=== PATIENT | female | born 1965 | race Caucasian/White ===

== ENCOUNTER → 2016-12-15 | Emergency (ER) | payer BC ==
[~2016-12-15] VITALS: Ht 166.4 cm; Wt 141.0 kg
[~2016-12-15] MED LIST: ALPR0.5T8 PO; HYDR-4246 PO; HYDR1TAB73 PO; HYDROCODONE/APAP 5/325 (PrePack) SENT HOME ONE; HYDROMORPHONE 2mg/ml INJECTION IV ONE; IOHEXOL 300 MG/ML 100ml INJECTION ONE; KETOROLAC 30mg/ml INJECTION IV ONE; LANS15CA5 PO; LEVO100T83 PO; LEVO500T63 PO; LEVOFLOXACIN 500 MG TABLET PO ONE; METR-116 PO; METRONIDAZOLE 500 MG TABLET PO ONE; NORMAL SALINE 1,000 ML IV ONE; NORMAL SALINE 100 ML ONE; ONDA4TAB7 PO; ONDANSETRON 4mg/2ml INJECTION IV ONE; ONDANSETRON ODT 4mg #3 (PrePack) SENT HOME ONE; POTA20TA10 PO; SALINE FLUSH 10ml SYRINGE ONE; SPIR25TA4 PO; SUMA100T PO; TORS100T2 PO
[2016-12-15 16:03] VITALS: Ht 166.4 cm; Wt 141.0 kg
--- OUTSIDE RECORDS SUMMARY | 2016-12-15 16:03 | XMS REPORT | Referral Summary ---
Author Author [facility], [facility] Care Organization [facility] Address Unknown Phone Unavailable Care Team Providers Care Licensed Midwife Name Role Phone Tatianna Restrepo Primary Care Physician [phone] Encounter VC Date(s): 03/05/15 - 03/05/15 [facility], [address] [place] [id number] Discharge Diagnosis: HTN (hypertension) Discharge Diagnosis: Acute URI Discharge Diagnosis: Acute UTI Discharge Diagnosis: Glucosuria Discharge Disposition: 01-Home or Self Care Attending Physician: Belinda Edmond APRN Admitting Physician: Belinda Edmond APRN Vital Signs Most recent to 1 oldest [Reference Range]: Temperature Tympanic 38.6 degC [36.6-38.1 degC] *HI* (03/05/15 5:10 PM) Peripheral Pulse 120 bpm Rate [60-100 bpm] *HI* (03/05/15 5:10 PM) Blood Pressure 150/98 mmHg [90-140/60-90 mmHg] *HI* (03/05/15 5:10 PM) SpO2 97 % (03/05/15 5:10 PM) Problem List Condition Effective Dates Status Health Status Informant Morbid Active patient obesity(Confirmed) Allergies, Adverse Reactions, Alerts Substance Reaction Severity Status erythromycin Active Medications Imitrex Once, 0 Refill(s) Start Date: 09/27/14 Status: Ordered levothyroxine Daily, 0 Refill(s) Start Date: 09/27/14 Status: Ordered oxybutynin 5 mg oral tablet 5 mg 1 tabs, Oral, TID, as needed for urinary discomfort, # 30 tabs, 0 Refill(s) , Pharmacy: [id number], 1 tabs Oral TID,PRN:as needed for urinary discomfort Start Date: 03/05/15 Status: Ordered spironolactone Oral, 0 Refill(s) Start Date: 09/27/14 Status: Ordered torsemide 100 mg oral tablet 1 tabs, Oral, Daily, # 30 tabs, 0 Refill(s) Start Date: 09/27/14 Status: Ordered Xanax 0.5 mg oral tablet 1 tabs, Oral, TID, as needed for anxiety, 0 Refill(s) Start Date: 09/27/14 Status: Ordered Results No data available for this section Immunizations No data available for this section Procedures Procedure Date Related Diagnosis Body Site section Subtotal thyroidectomy DANIEL BSO - Total abdominal hysterectomy and bilateral salpingo-oophorectomy Social History Social History Type Response Smoking Status Never smoker Assessment and Plan Extracted from: Title: Office Visit Note Author: Belinda Edmond DATA VIRTUALIZATION CONSULTANT Date: 03/05/15 Assessment/Plan 1.Acute UTI Urinalysis obtained and reviewed. Positive for nitrates. I also noted to have protein and ketones, glucose. Urine bilirubin elevated. We'll culture urine. Cipro 250 mg one by mouth twice a day 10 days. Oxybutynin 5 mg by mouth 3 times a day when necessary for bladder spasms. May continue pyrene 200 mg 3 times a day as needed for bladder spasms. Tylenol/ibuprofen for discomfort. Recommend she follow-up withDr. Keelyyenowoin the next week to manage chronic medical problems and if symptoms fail to improve. Ordered: Office Visit Level 4 Est 31211 2.Glucosuria Ordered: Office Visit Level 4 Est 74475 3.HTN (hypertension) Ordered: Office Visit Level 4 Est 60748 4.Acute URI [id number] Mucinex DM may be helpful for the cough. Ordered: Office Visit Level 4 Est 91979 Orders: ciprofloxacin, 250 mg 1 tabs, Oral, q12hr, X 10 days, # 20 tabs, 0 Refill(s), Pharmacy: [id number], 1 tabs Oral q12hr,x10 days oxybutynin, 5 mg 1 tabs, Oral, TID, as needed for urinary discomfort, # 30 tabs, 0 Refill(s), Pharmacy: [id number], 1 tabs Oral TID,PRN:as needed for urinary discomfort
--- OUTSIDE RECORDS SUMMARY | 2016-12-15 16:03 | XMS REPORT | Continuity of Care Document ---
Author Author [facility] Address Unknown Phone Unavailable Allergies Medications Problems Procedures Results Encounters ACCT No. Visit Date/Time Discharge Status Pt. Type Provider Facility Loc./Unit Complaint [id number] 07/29/2013 22:56:00 2012 00:17:00 DIS Emergency
--- OUTSIDE RECORDS SUMMARY | 2016-12-15 16:03 | XMS REPORT | Referral Summary ---
Author Author [facility] Organization [facility] Address Unknown Phone Unavailable Care Team Providers Care Angle Bender Name Role Phone Tatianna Restrepo Primary Care Physician [phone] Encounter VC Date(s): 04/02/16 - 04/02/16 [facility], Surgery [address] [place] [address] [place] [id number] Discharge Diagnosis: History of diverticulitis Discharge Disposition: 01-Home or Self Care Attending Physician: Pascual Devi MD Admitting Physician: Pascual Devi MD Referring Physician: Griffin Restrepo MD Vital Signs Most recent to 1 oldest [Reference Range]: Temperature Tympanic 36 degC [36.6-38.1 degC] *LOW* (04/02/16 9:54 AM) Peripheral Pulse 76 bpm Rate [60-100 bpm] (04/02/16 9:54 AM) Blood Pressure 128/82 mmHg [90-140/60-90 mmHg] (04/02/16 9:54 AM) Problem List Condition Effective Dates Status Health Status Informant IBS (irritable bowel Active syndrome)(Confirmed) HTN Active (hypertension)(Confi rmed) Hypothyroidism(Confi Active rmed) Migraines(Confirmed) Active Morbid Active patient obesity(Confirmed) Peptic Active ulcer(Confirmed) Allergies, Adverse Reactions, Alerts Substance Reaction Severity Status erythromycin Active Medications Imitrex Once, 0 Refill(s) Start Date: 09/27/14 Status: Ordered levothyroxine Daily, 0 Refill(s) Start Date: 09/27/14 Status: Ordered Alkol 5 mg-325 mg oral tablet 1 tabs, Oral, BID, Pain Severe (7-10), 0 Refill(s) Start Date: 04/02/16 Status: Ordered spironolactone Oral, 0 Refill(s) Start [...] Procedures Procedure Date Related Diagnosis Body Site Subtotal thyroidectomy 2000 Laparoscopic cholecystectomy 1998 DANIEL BSO - Total abdominal hysterectomy and 1998 bilateral salpingo-oophorectomy section1 1988 25163, 1987, 1988 Social History Social History Type Response Smoking Status Never smoker Assessment and Plan Extracted from: Title: Ambulatory Patient Education Author: Pascual Devi MD Date: Gastroenterology Gastrointestinal Problems During Exercise Gastrointestinal problems are problems with the stomach and intestines. It is common for athletes to experience gastrointestinal problems during exercise. This is especially true for distance runners and triathletes. Symptoms include: Heartburn. Nausea. Vomiting. Bloating. Flatulence. Cramping. Urge to go the bathroom. Rectal bleeding. Diarrhea. Abdominal pain. HOW CAN I TREAT MY SYMPTOMS? Treatment depends on your symptoms. Many symptoms may be reduced or prevented by : Limiting fiber intake before exercise. Eating a diet that is high in carbohydrates and low in protein and fat. Drinking fluids often while exercising. If you were prescribed medicines to improve your symptoms, taking them only as directed by your health care provider. Avoiding: Solid foods at least three hours before exercise. Eating a large meal before exercise. Foods and drinks with fat and protein during endurance exercise. Rectal Bleeding It is very important see your health care provider when you have rectal bleeding so that he or she can make sure the bleeding is not caused by something other than exercise. To lower the chance of rectal bleeding caused by exercise: Drink enough fluid to keep your urine clear or pale yellow. Wear good running shoes. Have the hemoglobin and iron levels in your body checked regularly. If these levels are not within the normal range, you may need to take iron supplements. Take medicines only as directed by your health care provider. Diarrhea To lower the chance of diarrhea, try reducing your intake of fiber a day and a half before a competition. If you still get diarrhea, talk to your health care provider. He or she may recommend an antidiarrheal medicine. Abdominal Pain To lower the chance of abdominal pain, try to avoid eating a large meal before you exercise. WHEN SHOULD I SEEK MEDICAL CARE? If your symptoms make it difficult for you to exercise. If you have symptoms every day. If you have unexplained weight loss. If you have rectal bleeding. If you have severe abdominal pain. If you have night sweats. If you have a fever. This information is not intended to replace advice given to you by your health care provider. Make sure you discuss any questions you have with your health care provider. Document Released: 04/28/2002 Document Revised: 08/24/2015 Document Reviewed: [facility] Patient Information 2016 [employer]. No follow up information was provided. Extracted from: Title: Office Visit Note Author: Pascual Devi MD Date: 04/02/16 Assessment/Plan 1.History of diverticulitis Ordered: Office Visit Level 4 Est 85382 Plan: Colonoscopy I did review the patient's chart including and upconsultation note performed by denia June 29, 2015. As stated above at that time she had a CT scan that revealed evidence for acute diverticulitis in conjunction with a smallamount offree air consistent with asmall microperforation. Additionallyreviewed CT scan from September 12, 2015that also revealed evidence for acute proximal sigmoid diverticulitiswith a couple of areas of possiblemicroperforation. I informed the patient at this point time would recommend that she undergo a colonoscopy for further evaluationI result of her history forrectal bleedingas well as secondary to her history for recurrent diverticulitis. Risk of endoscopy was discussed with the patient. Risks include but are not inclusive of bleeding and/or perforation requiring surgery. Patient understood and was scheduled. Patient was alsoinformed that if she continues to have ongoingbouts ofthat recurrentdiverticulitis that ultimately she may require surgical intervention/robotic-assisted laparoscopic sigmoid resection.
--- OUTSIDE RECORDS SUMMARY | 2016-12-15 16:03 | XMS REPORT | Referral Summary ---
Author Organization Unknown Address Unknown Phone Unavailable Care Team Providers Care Special Tester Name Role Phone Tatianna Restrepo Primary Care Physician [phone] Encounter VC Date(s): 09/27/14 - 09/27/14 [facility], [address] [place], [place] [address] Discharge Diagnosis: Abscess, scalp Discharge Disposition: Home or Self Care Attending Physician: Vincent Angeles JR, MD, FAAFP Admitting Physician: Vincent Angeles JR, MD, FAAFP Referring Physician: Griffin Restrepo MD Vital Signs Most recent to 1 oldest [Reference Range]: Temperature Tympanic 38.1 degC [36.6-38.1 degC] (09/27/14 7:37 PM) Peripheral Pulse 102 bpm Rate [60-100 bpm] *HI* (09/27/14 7:37 PM) Blood Pressure 142/88 mmHg [90-140/60-90 mmHg] *HI* (09/27/14 7:37 PM) Most recent to 1 oldest [Reference Range]: SpO2 96 % (09/27/14 7:37 PM) Problem List Condition Effective Dates Status Health Status Informant Morbid Active patient obesity(Confirmed) Allergies, Adverse Reactions, Alerts Substance Reaction Severity Status erythromycin Active Medications Augmentin 875 mg-125 mg oral tablet 1 tabs, Oral, q12hr, X 14 days, # 28 tabs, 0 Refill(s), Pharmacy: [facility] [id number] Start Date: 09/27/14 Stop Date: 10/11/14 Status: Ordered Imitrex Once, 0 Refill(s) Start Date: 09/27/14 Status: Ordered levothyroxine Daily, 0 Refill(s) Start Date: 09/27/14 Status: Ordered [place] 5 mg-325 mg oral tablet 1 tabs, Oral, q6hr, as needed for pain, # 12 tabs, 0 Refill(s) Start Date: 09/27/14 Stop Date: 10/06/14 Status: Ordered spironolactone Oral, 0 Refill(s) Start [...] Procedures Procedure Date Related Diagnosis Body Site Incision and drainage of abscess (eg, 09/27/14 carbuncle, suppurative hidradenitis, cutaneous or subcutaneous abscess, cyst, furuncle, or paronychia); complicated or multiple section Subtotal thyroidectomy DANIEL BSO - Total abdominal hysterectomy and bilateral salpingo-oophorectomy Social History Social History Type Response Smoking Status Never smoker Assessment and Plan Extracted from: Title: Office Visit Note - scalp Author: iVncent Angeles JR, MD, FAAFP Date : 09/27/14 sebaceous cyst I&D Assessment/Plan Abscess, scalp Patient counseled regarding diagnosis, natural history, pathophysiology, typical treatment, expected results. start Augmentin 875 po bid x14 days, Rx sent PROCEDURE: I&D of Abscessed sebaceous cyst - informed consent was obtained for incision and drainage of abscess as described above, including benefits, risks, and treatment alternatives including doing nothing and patient did want to proceed. Area was prepped in usual fashion. Local anaesthesia was obtained with 5cc 1% Lidocaine with Epi and was adequate to testing. Abscess entered with scalpel as a single stab incision and was unable to express any material. Incision extended 1.5 cm and 15cc purulence cheesy material obtained with foul odor. culture obtained on red tip swab.Additional purulence was manually expressed. 4 inches of 1/8 inch Iodophore gauze placed in abscess cavity to keep it open and allow continued drainage. Oozing was moderate but slowed with direct pressure. The area was re-cleansed and around the head mild pressure bandage applied with GISSELLE wrap. Pt may change the 4x4 as needed. Rocephin 1 gm IM given by the nurse, pt observed afterwards for stability. Rx norco 5/325 po q4 hrs prn, #20 sent to pharmacy. contact PCP office in am; my nurse will coordinate repacking either with us or Dr. Restrepo. will need packing daily until healed. swab sent to lab for C&S Ordered: amoxicillin-clavulanate, 1 tabs, Oral, q12hr, X 14 days, # 28 tabs, 0 Refill(s) , Pharmacy: [id number] cefTRIAXone, 1 g, IntraMuscular, Once, First Dose: 09/27/14 21:00:00 IP LITIGATION ASSOCIATE, Stop Date: 09/27/14 21:00:00 IP LITIGATION ASSOCIATE cefTRIAXone, 1 g=, IntraMuscular, Once, First Dose: 09/27/14 21:00:00 IP LITIGATION ASSOCIATE, Stop Date: 09/27/14 21:00:00 IP LITIGATION ASSOCIATE HYDROcodone-acetaminophen, 1 tabs, Oral, q6hr, as needed for pain, # 12 tabs, 0 Refill(s) Drain Skin Abscess, Complex/Multiple 69261 Office Visit Level 3 New 69507
--- OUTSIDE RECORDS SUMMARY | 2016-12-15 16:03 | XMS REPORT | Continuity of Care Document ---
Author Author [facility] Organization [facility] Address Unknown Phone Unavailable Support Name Relationship Address Phone PABLITO NEGRETE MD Caregiver [address] [place] [address] Unavailable SAMUEL ALANIZ FACS, MD Caregiver [address] [place] [address] [place] [address] Unavailable ROMMEL KOHLI Next Of Kin [address] [place], [place] [address] C Insurance Providers Guarantor Michaela Kohli Address [address] [place] [address] CP Email [email or web address] Payer [facility] Policy Number [id number] Subscriber's Name Michaela Kohli Relationship 18 Self Group Number [id number] Advance Directives Directive Response Recorded Date/Time Ordered Resuscitation Status Full Code 04/17/16 3:41pm Resuscitation Documents on File No 04/18/16 7:44am DPOA for Healthcare Only No 04/18/16 7:44am Living Will No 04/18/16 7:44am Problems Active Problems Medical Problem Onset Date Status Adrenal abnormality Unknown Acute Adrenal tumor Unknown Anxiety Unknown Acute Bowel perforation Unknown Acute Depression Unknown Acute Diverticulitis of sigmoid colon Unknown Acute Hypertension Unknown Acute Hypokalemia Unknown Acute Irritable bowel Unknown Acute Migraine headache Unknown Acute Obesity, morbid, BMI 50 or higher Unknown Acute Pyelonephritis Unknown Acute Medications Current Home Medications Medication Dose Units Route Directions Days Qty Instructions Start Date Alprazolam 0.5 Mg Tablet 0.5 Mg Oral Twice A Day as needed for Anxiety 09/12/15 Hydrocodone Bit/Acetaminophen (Lortab 5) 1 Tab Tablet 1 Tab Oral As Needed 02/02/13 Lansoprazole (Prevacid) 15 Mg Capsule. 2 Cap Oral Daily 60 Capsule 09/19/15 Levothyroxine Sodium (Synthroid) 100 Mcg Tablet 100 Mcg Oral Before Breakfast Take 1 tablet by mouth daily on an empty stomach. 02/02/13 Ondansetron (Zofran Odt) 4 Mg Tab.rapdis 4 Mg Oral Q6h/0300,0900,1500,2100 as needed for Nausea Oral disintegrating tablet 09/12/15 Potassium Chloride (Klor-Con M20) 20 Meq Tablet 40 Meq Oral Give With Supper 30 Tablet 09/19/15 Spironolactone 25 Mg Tablet 25 Mg Oral Twice A Day 09/12/15 Sumatriptan (Imitrex) 100 Mg Tablet Oral As Needed as needed for Headache 02/02/13 Torsemide (Demadex) 100 Mg Tablet 100 Mg Oral Daily 02/02/13 Past Home Medications Medication Directions Ordered Status Potassium 99 Mg Tablet, 220 Mg Oral Daily 02/02/13 Discontinued Potassium Chloride 10 Meq Tab.er.prt, 1.5-2 Tab Oral Daily 09/12/15 Discontinued Torsemide 100 Mg Tablet, 1 Tab Oral Daily 07/01/15 Discontinued Social History Social History Problem Response Recorded Date/Time Onset Date Status Chewing Tobacco Status No 04/18/2016 7:39am Not Applicable Not Applicable Hx Substance Use No 04/18/2016 7:39am Not Applicable Not Applicable Hx Alcohol Use Y OCCAS 04/18/2016 7:39am Not Applicable Not Applicable Has the pt used tobacco in the last 12 months No 04/18/2016 7:39am Not Applicable Not Applicable Tobacco Usage none 06/29/2015 7:47pm Not Applicable Not Applicable Query Response Start Date Stop Date Smoking Status Never smoker Hospital Discharge Instructions No hospital discharge instructions. Plan of Care Discharge Date 04/18/16 10:20am Prescriptions See Medication Section Functional Status Query Response Date Recorded Ability to complete ADL's impeded by No change April 18, 2016 7:44am Allergies, Adverse Reactions, Alerts Allergen Type Severity Reaction Status Last Updated Latex Allergy Severe SWELLING,ITCHING Active 04/17/16 Erythromycin base Allergy Unknown Active 09/12/15 adhesive tape Allergy Unknown Active 09/12/15 Latex Allergy Severe SWELLING,ITCHING Active 04/17/16 PAPER TAPE Allergy Unknown Active 09/12/15 Immunizations Query Response on File Recorded Date/Time Hx Influenza Vaccination No 04/18/16 7:39am Hx Pneumococcal Vaccination No 04/18/16 7:39am Hx Influenza Vaccination No 04/18/16 7:39am Vital Signs Acute Vital Signs Vital Response Date/Time Temperature (Fahrenheit) 97.2 deg F (96.8 - 99.1) 04/18/2016 9:55am Temperature (Calculated Celsius) 36.80231 degrees C (36.0 - 37.3) 04/18/2016 9:55am Temperature Source Temporal 04/18/2016 9:55am Pulse Rate (adult) 76 bpm (60 - 100) 04/18/2016 10:15am Respiratory Rate 18 breaths/min (10 - 20) 04/18/2016 10:15am O2 Sat by Pulse Oximetry 95 % (90 - 100) 04/18/2016 10:15am Oxygen Delivery Method Room Air 04/18/2016 10:15am Blood Pressure 117/74 mm Hg 04/18/2016 10:15am Blood Pressure Source Automatic Cuff 04/18/2016 10:15am Height (Feet) 5 feet 04/18/2016 7:07am Height (Inches) 5.00 inches 04/18/2016 7:07am Weight (Kilograms) 138.000 kg 04/18/2016 7:07am Body Mass Index (BMI) 50.6 04/18/2016 7:07am Results No known relevant diagnostic tests, laboratory data and/or discharge summary. Procedures Procedure Status Date Provider(s) ULTRASOUND BREAST LIMITED Completed 02/26/16 COMPUTER DX MAMMOGRAM ADD-ON Completed 02/26/16 BREAST TOMOSYNTHESIS BI Completed 02/26/16 [id number]"DIAGNOSTIC MAMMOGRAPHY, PRODUCING DIRECT DIGITAL IMAG Completed Colonoscopy Completed 04/18/16 SAMUEL ALANIZ MD, FACS, ROCIOS Encounters Encounter Location Arrival/Admit Date Discharge/Depart Date Attending Provider Departed Surgical Day Care [facility] 04/18/16 6:58am 04/18/16 10 :20am SAMUEL ALANIZ FACS, MD Registered Clinic [facility] 02/26/16 2:23pm PABLITO NEGRETE MD
--- OUTSIDE RECORDS SUMMARY | 2016-12-15 16:28 | XMS REPORT | Continuity of Care Document ---
Author Author [facility] Address Unknown Phone Unavailable Allergies Medications Problems Procedures Results Encounters ACCT No. Visit Date/Time Discharge Status Pt. Type Provider Facility Loc./Unit Complaint [id number] 07/29/2013 22:56:00 2012 00:17:00 DIS Emergency
--- NOTE | 2016-12-15 16:29 | ERPDOC ---
Departure Disposition Decision Date: December 15, 2016 Disposition Decision Time: 19:30 (BRICE RIVERA APRN) Disposition: 01 DISCHARGED HOME, SELF-CARE Impression Impression (BRICE RIVERA APRN) Impression: Primary Impression: Sigmoid diverticulitis Severity: Moderate (BRICE RIVERA APRN) Condition: Improved Seen By: Mid-level only (BRICE RIVERA APRN) Referrals: PABLITO RESTREPO MD (Family) Patient Instructions: Diverticulitis (ED), Low Fiber Diet (ED) Problems/Meds/Labs Reviewed?: Yes Medications reviewed and manag: Yes (BRICE RIVERA APRN) Additional Instructions: Your CT scan shows a have diverticulitis in your sigmoid colon. Take Levaquin 500 mg daily for 10 days. Take metronidazole 500 mg 3 times daily for 10 days You may take [place] 5/325 one to 2 tabs every 4-6 hours as needed for pain. This medication may cause drowsiness so avoid driving, operating heavy machinery or drinking alcohol while taking. This medication does cause constipation so you may need to take a stool softener while taking. You may take Zofran 4 mg ODT, dissolve one tab on tongue every 4-6 hours as needed for nausea and vomiting. Eat a low fiber diet (see discharge packet). Follow with Dr. Restrepo as scheduled in office on Thursday for reevaluation. Follow treatment plan. Follow up care ordered?: Yes Mental Status: Alert, Oriented (BRICE RIVERA APRN) Scripts Levofloxacin (Levaquin) 500 Mg Tablet 1 TAB-CAP PO DAILY for 10 Days Prov: BRICE RIVERA APRN 12/15/16 Metronidazole (Metronidazole) 500 Mg Tablet 500 MG PO TID for 10 Days, #30 TAB Prov: BRICE RIVERA APRN 12/15/16 Ondansetron (Zofran Odt) 4 Mg Tab.rapdis 4 MG PO Q4-6HPRN for NAUSEA &/OR VOMITING, #20 TAB Oral disintegrating tablet Prov: BRICE RIVERA APRN 12/15/16 Hydrocodone/Acetaminophen ([place] 5-325 Tablet) 5-325 Tablet 1-2 TAB PO Q4-6HPRN for PAIN, #20 TAB Prov: BRICE RIVERA APRN 12/15/16 HPI - Abdominal Pain General Chief Complaint: Abdominal Pain Stated Complaint: FEVER,LOWER ABD PAIN Time Seen by Provider: 16:04 Source: patient (BRICE RIVERA APRN) Time Seen by Provider: 16:04 (SUJEY ANGLIN DO) HPI - Abdominal Pain Initial Comments 51 YO F presents to ED with report of bilateral lower abdominal pain that started last night. Patient says that she thought it might be from exercising last night (just started working out), however today pain increased and she had a fever of 100. Patient has a hx. of diverticulitis and says this feels similar to previous episodes. Admits nausea. Denies vomiting, diarrhea, dysuria. Pain Scale: Now: 5/10 Quality: aching Location: RLQ, LLQ Radiation: no radiation Associated Symptoms: fever/chills, nausea/vomiting, DENIES: back pain, chest pain, diaphoresis, fatigue, headache, heartburn, rash, shortness of breath, swelling/mass in abdomen, syncope, weakness (BRICE RIVERA APRN) Allergies: Coded Allergies: Latex, Natural Rubber (Verified Allergy, Severe, SWELLING,ITCHING, 12/15/16) latex (Verified Allergy, Severe, SWELLING,ITCHING, 12/15/16) adhesive tape (Verified Allergy, Unknown, 12/15/16) erythromycin base (Verified Allergy, Unknown, 12/15/16) Uncoded Allergies: PAPER TAPE (Allergy, Unknown, 09/12/15) Past History Patient Surgical History DANIEL-BSO Cholecystectomy with DANIEL-BSO Hemithyroidectomy 2007 Adrenalectomy (BRICE RIVERA APRN) Past Medical History Metabolic: hypertension, hypothyroidism Cardiac: DENIES: angina Respiratory: DENIES: asthma GI: other (diverticulitis) Female: DENIES: renal insufficiency Neurological: DENIES: seizures Musculoskeletal: DENIES: rheumatoid arthritis Psychological: anxiety, depression (BRICE RIVERA APRN) Surgical History General: gallbladder, tonsils Reproductive/: hysterectomy (BRICE RIVERA APRN) Family History Family PMH: FOUND: other (noncontributory) (BRICE RIVERA APRN) Vaccines Hx Influenza Vaccination: No Hx Pneumococcal Vaccination: No (BRICE RIVERA APRN) Social History Does patient use chewing tobac: No Second Hand Exposure: No Substance Use Type: does not use Alcohol Intake: none Sexuality: male partner (RIVERA,BRICE A ELEVATOR WORKER) Review of Systems Constitutional Constitutional: fever, DENIES: chills, dizziness, weakness (RIVERABRICE A ELEVATOR WORKER) Eyes General: DENIES: erythema, exudate Lids/Accessories: DENIES: erythema, swelling (ESPINOZA RIVERAS A ELEVATOR WORKER) ENMT Ears: DENIES: pain Hearing: DENIES: hearing loss Sinuses: DENIES: congestion, rhinorrhea Mouth/Throat: DENIES: sore throat (RIVERA,BRICE A ELEVATOR WORKER) Cardiovascular Cardiac: DENIES: chest pain, murmur Rhythm/Rate: DENIES: palpitations (RIVERABRICE A ELEVATOR WORKER) Pulmonary Respiratory: DENIES: cough, dyspnea (RIVERA,BRICE A ELEVATOR WORKER) GI Upper Abdomen: nausea, see HPI, DENIES: pain, vomiting Lower Abdomen: pain, see HPI, DENIES: blood in stool, diarrhea (RIVERA,BRICE A ELEVATOR WORKER) General: DENIES: dysuria, pain (RIVERA,BRICE A ELEVATOR WORKER) Musculoskeletal General: DENIES: joint pain, pain, tenderness (RIVERAESPINOZAS A ELEVATOR WORKER) Integumentary Skin: DENIES: color change, itching, rash (RIVERABRICE A ELEVATOR WORKER) Neurological General: DENIES: ataxia, change in strength, numbness, paralysis/paresis, weakness (RIVERA,BRICE A ELEVATOR WORKER) Psychiatric Psychiatric: DENIES: anxiety, depression, nervousness (NICOLEBRICE A ELEVATOR WORKER) Physical Exam General General Nourishment: well nourished, well developed, adult General Body Habitus: well groomed (RIVERA,BRICE A ELEVATOR WORKER) Vitals and Pain Weight: Kilograms: 141.000 Height (feet): 5 Height (inches): 5.50 Triage Pain Scale: (RIVERA,BRICE A ELEVATOR WORKER) Eyes (brief) Eyes Brief: found: EOMI (RIVERA,BRICE A ELEVATOR WORKER) ENMT (brief) ENMT Brief: FOUND: mucosa moist, NOT FOUND: nasal exudate, nasal swelling ( RIVERA,BRICE A ELEVATOR WORKER) Neck (brief) Neck: FOUND: trachea midline, NOT FOUND: adenopathy, spasm, tenderness, thyromegaly (RIVERA,BRICE A ELEVATOR WORKER) Respiratory (brief) Respiratory: FOUND: clear all maddox, equal bilaterally, symmetrical (RIVERA, BRICE A ELEVATOR WORKER) Cardiovascular Auscultation: FOUND: S1, S2, rate (120), regular (BRICE RIVERA ELEVATOR WORKER) Abdomen Inspection: NOT FOUND: distention Palpation: FOUND: soft, tender (mild bilateral lower quadrant TTP), NOT FOUND: McBurney's point tender, Psoas sign, involuntary guarding, rebound, voluntary guarding Auscultation: FOUND: hypoactive (x4) (BRICE RIVERA ELEVATOR WORKER) Musculoskeletal (brief) Musculoskeletal Brief: NOT FOUND: deformity, tenderness (BRICE RIVERA APRN) Integumentary (brief) Integumentary Brief: FOUND: dry, pink, warm (BRICE RIVERA ELEVATOR WORKER) Neurologic (brief) Neurological Brief: FOUND: CN w/o gross def to obs, motor-no gross deficits, sensory-no gross deficits (BRICE RIVERA ELEVATOR WORKER) Psychiatric (brief) Psychiatric Brief: FOUND: alert, normal affect, oriented (BRICE RIVERA ELEVATOR WORKER ) Differential Diagnoses Considering: Appendicitis, Constipation, Diverticulitis, Gastroenteritis, Ileus , UTI (BRICE RIVERA APRN) Progress Results/Orders Medications Current ED Medications Sodium Chloride (Normal Saline IV) 1,000 ml @ 0 mls/hr Q0M ONCE IV Last administered on 12/15/16 16:54; Start 12/15/16 at 16:33; Stop 12/15/16 at 16:35; Status DC Hydromorphone HCl (Dilaudid) 1 mg O ONCE IV Last administered on 12/15/16 16: 55; Start 12/15/16 at 16:45; Stop 12/15/16 at 16:46; Status DC Ondansetron HCl (Zofran) 4 mg O ONCE IV Last administered on 12/15/16 16:54; Start 12/15/16 at 16:45; Stop 12/15/16 at 16:46; Status DC Iohexol 1 bottle 1 bottle STK-MED ONCE .ROUTE ; Start 12/15/16 at 18:18; Stop 12/15/16 at 18:19; Status DC Sodium Chloride (NS) 100 ml @ As Directed STK-MED ONCE .ROUTE ; Start 12/15/16 at 18:18; Stop 12/15/16 at 18:19; Status DC Sodium Chloride (Iv Flush) 10 ml STK-MED ONCE .ROUTE ; Start 12/15/16 at 18:18; Stop 12/15/16 at 18:19; Status DC Ondansetron HCl (Zofran) 4 mg O ONCE IV Last administered on 12/15/16 20:22; Start 12/15/16 at 20:00; Stop 12/15/16 at 20:01; Status DC Hydromorphone HCl (Dilaudid) 0.5 mg O ONCE IV Last administered on 12/15/16 20 :26; Start 12/15/16 at 20:00; Stop 12/15/16 at 20:01; Status DC Levofloxacin (LEVAQUIN 500 mg tablet) 500 mg O ONCE PO Last administered on 20:36; Start 12/15/16 at 20:30; Stop 12/15/16 at 20:31; Status DC Metronidazole (Flagyl) 500 mg O ONCE PO Last administered on 12/15/16 20:36; Start 12/15/16 at 20:30; Stop 12/15/16 at 20:31; Status DC Ketorolac Tromethamine (Toradol) 30 mg O ONCE IV Last administered on 20:59; Start 12/15/16 at 20:45; Stop 12/15/16 at 20:46; Status DC Acetaminophen/ Hydrocodone Bitart (NORCO 5 (PrePack)) 1 pack O ONCE SENT HOME Last administered on 12/15/16 21:00; Start 12/15/16 at 20:45; Stop 12/15/16 at 20: 46; Status DC Ondansetron HCl (ZOFRAN ODT (PrePack)) 1 pack O ONCE SENT HOME Last administered on 12/15/16 21:04; Start 12/15/16 at 20:45; Stop 12/15/16 at 20:46; Status DC ( M DO) Progress Progress WBC 15.4, 4% bands CMP and UA unremarkable Patient VS have improved with fluids and Dilaudid. I discussed labs, CT findings and conversation with Dr. Restrepo with patient and answered question. Patient is discharged home improved and verbalized understanding of treatment plan, follow up with Dr. Restrepo and return precautions. (BRICE RIVERA APRN) Consult/PCP Consult/PCP : Physician Contacted: Dr. Restrepo Time Called: 19:30 Type of discussion: Phone Consult/PCP Discussion Details I discussed patient HPI, PMH, labs, VS, CT of abdomen/pelvis and exam finding with Dr. Restrepo patient's PCP. Dr. Restrepo says patient may go home on Levaquin and metronidazole. Patient should follow with him in office in one week for re-evaluation, sooner if worsting symptoms. (BRICE RIVERA APRN) CT CT : CT: Abd/Pelvis IV contrast Interpretation: Abnormal (Sigmoid diverticulitis), Faxed Report (BRICE RIVERA APRN) BRICE RIVERA APRN December 15, 2016 16:29 DECEMBER,SUJEY Mas DO December 20, 2016 07:36 Laboratory Tests Test 12/15/16 16:40 12/15/16 18:58 White Blood Count 15.4T/MM3 Red Blood Count 5.12M/MM3 Hemoglobin 14.3GM/DL Hematocrit 43.3% Mean Corpuscular Volume 84.6UM3 Mean Corpuscular Hemoglobin 27.9UUG Mean Corpuscular Hemoglobin Concent 33.0GM/DL RDW Standard Deviation 46.5FL Platelet Count 206T/MM3 Mean Platelet Volume 11.3UM3 Immature Granulocyte % (Auto) % Neutrophils (%) (Auto) % Lymphocytes (%) (Auto) % Monocytes (%) (Auto) % Eosinophils (%) (Auto) % Basophils (%) (Auto) % Absolute Immature Granulocyte (auto T/MM3 Absolute Neutrophils (auto) T/MM3 Absolute Lymphocytes (auto) T/MM3 Absolute Monocytes (auto) T/MM3 Absolute Eosinophils (auto) T/MM3 Absolute Basophils (auto) T/MM3 Neutrophils % (Manual) 78.0% Band Neutrophils % 4.0% Lymphocytes % (Manual) 9.0% Reactive Lymphocytes % 1.0% Monocytes % (Manual) 7.0% Basophils % (Manual) 1.0% Absolute Neutrophils (Manual) 12.0T/MM3 Band Neutrophils # 0.6T/MM3 Lymphocytes # (Manual) 1.4T/MM3 Reactive Lymphocytes # 0.2T/MM3 Monocytes # (Manual) 1.1T/MM3 Basophils # (Manual) 0.2T/MM3 Red Cell Morphology Comment Normal Turbidity < 20 Sodium Level 143MEQ/L Potassium Level 3.5MEQ/L Chloride Level 100MEQ/L Carbon Dioxide Level 24MEQ/L Anion Gap 19MEQ/L Blood Urea Nitrogen 13.0MG/DL Creatinine 0.9MG/DL Glomerular Filtration Rate Calc 66 BUN/Creatinine Ratio 14RATIO Glucose Level 106MG/DL Calculated Osmolality 275MOSM/KG Calcium Level 10.1MG/DL Total Bilirubin 1.10MG/DL Icterus Index < 2 Aspartate Amino Transf (AST/SGOT) 27U/L Alanine Aminotransferase (ALT/SGPT) 48U/L Alkaline Phosphatase 86U/L Total Protein 8.3G/DL Albumin 4.9G/DL Globulin 3.4G/DL Albumin/Globulin Ratio 1.4RATIO Chemistry Specimen Hemolysis < 15 Urine Collection Type Cleancatch-midstream Urine Color Yellow Urine Turbidity Clear Urine pH 7.0 Urine Specific [place] <=1.005 Urine Protein Negative Urine Glucose (UA) Negative Urine Ketones Trace Urine Blood Negative Urine Nitrite Negative Urine Bilirubin Negative Urine Urobilinogen 0.2EU/DL Urine Leukocyte Esterase Negative Urinalysis Comment Microscopic not ind. Medications Current ED Medications Sodium Chloride (Normal Saline IV) 1,000 ml @ 0 mls/hr Q0M ONCE IV Last administered on 12/15/16 16:54; Start 12/15/16 at 16:33; Stop 12/15/16 at 16:35; Status DC Hydromorphone HCl (Dilaudid) 1 mg O ONCE IV Last administered on 12/15/16 16: 55; Start 12/15/16 at 16:45; Stop 12/15/16 at 16:46; Status DC Ondansetron HCl (Zofran) 4 mg O ONCE IV Last administered on 12/15/16 16:54; Start 12/15/16 at 16:45; Stop 12/15/16 at 16:46; Status DC Iohexol 1 bottle 1 bottle STK-MED ONCE .ROUTE ; Start 12/15/16 at 18:18; Stop 12/15/16 at 18:19; Status DC Sodium Chloride (NS) 100 ml @ As Directed STK-MED ONCE .ROUTE ; Start 12/15/16 at 18:18; Stop 12/15/16 at 18:19; Status DC Sodium Chloride (Iv Flush) 10 ml STK-MED ONCE .ROUTE ; Start 12/15/16 at 18:18; Stop 12/15/16 at 18:19; Status DC Ondansetron HCl (Zofran) 4 mg O ONCE IV Last administered on 12/15/16 20:22; Start 12/15/16 at 20:00; Stop 12/15/16 at 20:01; Status DC Hydromorphone HCl (Dilaudid) 0.5 mg O ONCE IV Last administered on 12/15/16 20 :26; Start 12/15/16 at 20:00; Stop 12/15/16 at 20:01; Status DC Levofloxacin (LEVAQUIN 500 mg tablet) 500 mg O ONCE PO Last administered on 20:36; Start 12/15/16 at 20:30; Stop 12/15/16 at 20:31; Status DC Metronidazole (Flagyl) 500 mg O ONCE PO Last administered on 12/15/16 20:36; Start 12/15/16 at 20:30; Stop 12/15/16 at 20:31; Status DC Ketorolac Tromethamine (Toradol) 30 mg O ONCE IV ; Start 12/15/16 at 20:45; Stop 12/15/16 at 20:46; Status DC Acetaminophen/ Hydrocodone Bitart (NORCO 5 (PrePack)) 1 pack O ONCE SENT HOME ; Start 12/15/16 at 20:45; Stop 12/15/16 at 20:46; Status DC Ondansetron HCl (ZOFRAN ODT (PrePack)) 1 pack O ONCE SENT HOME ; Start 12/15/16 at 20:45; Stop 12/15/16 at 20:46; Status DC Progress Progress WBC 15.4, 4% bands CMP and UA unremarkable Patient VS have improved with fluids and Dilaudid. I discussed labs, CT findings and conversation with Dr. Restrepo Consult/PCP Consult/PCP : Physician Contacted: Dr. Restrepo Time Called: 19:30 Type of discussion: Phone Consult/PCP Discussion Details I discussed patient HPI, PMH, labs, VS, CT of abdomen/pelvis and exam finding with Dr. Restrpeo patient's PCP. Dr. Restrepo says patient may go home on Levaquin and metronidazole. Patient should follow with him in office in one week for re-evaluation, sooner if worsting symptoms. CT CT : CT: Abd/Pelvis IV contrast Interpretation: Abnormal (Sigmoid diverticulitis), Faxed Report BRICE RIVERA ELEVATOR WORKER December 15, 2016 16:29
[2016-12-15 16:50] LABS: HCT - HEMATOCRIT 43.3 % (36-46); HGB - HEMOGLOBIN 14.3 GM/DL (12-16); MEAN CORPUSCULAR HGB 27.9 UUG (26-34); MEAN CORPUSCULAR VOLUME 84.6 UM3 (80-100); MEAN PLATELET VOLUME 11.3 UM3 (9.4-12.4); RED BLOOD COUNT 5.12 M/MM3 (4.00-5.20); WBC - WHITE BLOOD COUNT 15.4 T/MM3 (4.5-11.0)
[2016-12-15 16:59] LABS: ALBUMIN 4.9 G/DL (3.5-5.0); ALBUMIN/GLOBULIN RATIO 1.4 RATIO (1.1-2.2); ALKALINE PHOSPHATASE 86 U/L (38-126); ALT (SGPT) 48 U/L (9-52); ANION GAP 19 MEQ/L (5-15); AST (SGOT) 27 U/L (14-36); BUN/CREATININE RATIO 14 RATIO (6-26); CALCIUM 10.1 MG/DL (8.4-10.2); CHLORIDE 100 MEQ/L (98-107); CO2 - CARBON DIOXIDE 24 MEQ/L (22-30); CREATININE 0.9 MG/DL (0.7-1.2); GLOMERULAR FILTRATION RATE 66; GLUCOSE 106 MG/DL (65-110); POTASSIUM 3.5 MEQ/L (3.6-5); SODIUM 143 MEQ/L (134-144); TOTAL PROTEIN 8.3 G/DL (6.3-8.2)
[2016-12-15 17:34] LABS: BAND NEUTROPHILS # 0.6 T/MM3; BASOPHILS # (MANUAL) 0.2 T/MM3 (0-0.2); LYMPHOCYTES # (MANUAL) 1.4 T/MM3 (1-4.8); MONOCYTES # (MANUAL) 1.1 T/MM3 (0-0.8); REACTIVE LYMPHOCYTES # 0.2 T/MM3 (0-0); TOTAL CELLS COUNTED 100 %
--- NOTE | 2016-12-15 18:29 | NUR ---
CT SCAN PT GONE TO CT SCAN VIA CART.
--- NOTE | 2016-12-15 18:39 | NUR ---
CT SCAN PT BACK FROM CT SCAN VIA CART.
[2016-12-15 19:12] LABS: BLOOD, URINE NEGATIVE (NEGATIVE); COLOR,URINE YELLOW (YELLOW); LEUKOCYTE ESTERASE ,URINE NEGATIVE (NEGATIVE); NITRITE,URINE NEGATIVE (NEGATIVE); UROBILINOGEN,URINE 0.2 EU/DL (NORMAL)
[2016-12-15 19:14] VITALS: TEMP 98.4
--- NOTE | 2016-12-15 19:15 | NUR ---
UO 550CC CLEAR/STRAW OUT, SPECIMEN SENT TO LAB
--- NOTE | 2016-12-15 20:21 | NUR ---
PO MEDS LEVEQUIN FLAGYL GIVEN CHARTED W/ PT TOLERANCE.
[2016-12-15 21:04] VITALS: BP 111/59; PULSE 93; RESP 18; O2SAT 93
--- NOTE | 2016-12-15 21:04 | NUR ---
DISCHARGE PT GIVEN INSTRUCTIONS FOR DIVERTICULITIS W/ FOLLOWING MEDS RX HYDROCODONE,LEVAQUIN,METRONIDAZOLE, AND ZOFRAN PT VERBALIZED UNDERSTANDING SIGNED FORM, PT LEFT AMBULATORY W/O ASSIST,ALERT, VS CHARTED CONDITION IMPROVED TO 4/10 AND NO ACUTE DISTRESS.
--- NOTE | 2016-12-16 08:25 | DI ---
Indication: ITS.REASON: bilateral lower abdominal pain with hx. of diverticulitis PROCEDURE: CT ABD/PELVIS W/CONTRAST ONLY: Encounter: Initial Comparison: December 10, 2015 Technique: Axial CT images were performed through the abdomen and pelvis after the administration of intravenous contrast. Coronal and sagittal two-dimensional reformats. Automated Exposure Control and Iterative Reconstruction dose reducing techniques were utilized. Contrast: Omnipaque 300 98 mL Findings: Stable presumably benign 4 mm left lower lobe pulmonary nodule. Lung bases are otherwise clear. The liver appears normal. The gallbladder is surgically absent. The spleen, pancreas and adrenal glands are within normal limits. Small bilateral renal cysts are stable. Tiny nonobstructing lower pole right renal cyst. 1 cm aortocaval lymph node, slightly larger than the comparison, but nonspecific. Inflammation surrounding the proximal to mid sigmoid colon with numerous diverticula. No free air or abscess formation identified. No evidence of a bowel obstruction. The appendix is normal. Bone windows are grossly stable. Impression: 1. Acute uncomplicated sigmoid diverticulitis. 2. One borderline-enlarged aortocaval node could be reactive due to the acute inflammatory process. There is a preliminary report by [facility]. .
== END | disposition home or self-care (01) ==
LOC: ED 16:00
DX: K57.32 Diverticulitis of large intestine without perforation or abscess without bleeding (principal)
CPT/HCPCS: 36415; 74177; 80053; 81003; 85025; 87040; 96374; 96375; 96376; 99284; J1170; J1885; J2405; J7030; J7050; Q9967